=== PATIENT | female | born 1975 | race Hispanic/Latino ===

== ENCOUNTER 2016-06-27 06:24 | Emergency (ER) | payer MEDICAID ==
[~2016-06-27] VITALS: Ht 139.7 cm; Wt 61.3 kg
[2016-06-27 06:26] VITALS: BP 108/69; PULSE 88; RESP 14; O2SAT 98
--- NOTE | 2016-06-27 06:42 | ED.REPORT ---
HPI-Abd Pain F Under 40 Date of Service Jun 27, 2016 ED Provider: The patient is a 40 year old female who presents to the emergency department complaining of RUQ abdominal pain that began 2 weeks ago. The pain does not radiate anywhere else. She has also experienced nausea and a headache. She was seen at [facility] 2 weeks ago for the same. She was prescribed medication at that time but it was not helpful. She denies fever, chills, vomiting or diarrhea. She does not have history of previous abdominal surgeries. She does not believe she is . Nursing Notes Stated Complaint: ABDOMINAL PAIN Chief Complaint: Female Abdominal Pain Nursing Notes Reviewed: Yes Allergies: Coded Allergies: No Known Allergies (Verified Allergy, Unknown, 06/27/16) General Time Seen by MD: 06:42 Chief Complaint Abdominal pain Hx Obtained From: Patient, Other family..., Quality Tester Arrived By: Walk-in Sudden in Onset?: No Onset Occurred: More than a week ago... (2 weeks) Symptom Duration: Since onset Progression since Onset: Constant Location: : RUQ Quality: Painful Severity: Current: Moderate Severity: Maximum: Moderate Recent Healthcare: No recent hospitalization, Recent doctor visit Similar Sx Previous: Yes Past Medical History Past Surgical History No previous abdominal surgeries Family History Noncontributory Social History Other Social History: Good social support, Local resident Ambulatory Status Independent Review of Systems Constitutional: Denies: Chills, Fever GI: Reports: Abdominal pain, Nausea, Denies: Diarrhea, Vomiting Female: Denies: Complete sys rev & neg: except as marked. Neurologic: Reports: Headache Physical Exam Initial Vital Signs Vital Signs (First) Date Time Temp Pulse Resp B/P Pulse Ox O2 Delivery O2 Flow Rate FiO2 06/27/16 06:26 36.5 88 14 108/69 98 Initial VS: Reviewed Head / Eyes: Atraumatic, Normocephalic, PERRL ENT: Mucous membranes moist, Conjunctiva normal, No scleral icterus Neck: Supple, Non-tender, Full range of motion Extremities: Vascular intact, Neuro intact, No swelling, No tenderness Skin: Warm, Dry, No cyanosis Psychiatric: Mood/affect normal, Behavior normal, Normal thought content General/Constitutional: Awake, Alert, No acute distress, Cooperative Respiratory / Chest: Atraumatic, Breath sounds NL, Breath sounds = bilat, No respiratory distress, No rales, No rhonchi, No wheezing Cardiovascular: Heart rate NL, Regular rhythm, Heart sounds NL, No gallop, No murmurs, No rubs, Peripheral circulation NL Heart Rate / Rhythm: Negative: Tachycardia Heart Sounds / Murmur: Negative: Murmur present... Abdomen: Soft, No guarding, No rebound, BS normoactive, No distention, No hernia, No palpable mass, No pulsatile mass Tenderness/Guarding/Rebound: Positive: Tender RUQ..., Tender epigastric, Negative: Tender RLQ... Organomegaly / Mass / Hernia: Negative: Hepatomegaly, Splenomegaly Back: No midline vertebral tend, No CVA tenderness Neurologic: Oriented X3, Speech NL, Gait NL Lower Extremity / Pelvis / MS: Neurologic intact, Vascular intact, No edema Interpretation & Diagnostics Interpretation & Diagnostics: Abdominal US: Gallstones, no obvious signs of inflammation. Labs drawn on 06/04/2016: BUN 20, creatinine 0.79, WBC 10.9, HGB 16.0, HCT 41.8, platelets 283 Lab Results Interpretation Result Diagram: 06/27/16 0715 06/27/16 0715 Test 06/27/16 07:15 06/27/16 07:30 White Blood Count 7.6th/mm3 (3.8-10.1) Red Blood Count 4.70mil/mm3 (3.90-5.20) Hemoglobin 14.9g/dL (12.0-15.6) Hematocrit 42.6% (35.0-46.0) Mean Corpuscular Volume 90.6fL (81-100) Mean Corpuscular Hemoglobin 31.7pg (27.0-35.0) Mean Corpuscular Hemoglobin Concent 35.0% (32.0-37.0) Red Cell Distribution Width 13.0% (12.3-15.4) Platelet Count 232bil/L (150-400) Neutrophils (%) (Auto) 51.8% (40-74) Lymphocytes (%) (Auto) 39.2% (14-46) Monocytes (%) (Auto) 6.2% (4-12) Eosinophils (%) (Auto) 2.1% (0-5) Basophils (%) (Auto) 0.4% (0-3) Sodium Level 139mEq/L (134-144) Potassium Level 3.9mEq/L (3.5-5.2) Chloride Level 106mEq/L (97-108) Carbon Dioxide Level 20mmol/L (18-29) Blood Urea Nitrogen 12mg/dL (6-20) Creatinine 0.56mg/dL (0.57-1.00) Estimat Glomerular Filtration Rate 174mL/min (>59) Glucose Level 114mg/dL (60-99) Calcium Level 8.4mg/dL (8.5-10.1) Total Bilirubin 0.3mg/dL (0.0-1.2) Aspartate Amino Transf (AST/SGOT) 24U/L (0-50) Alanine Aminotransferase (ALT/SGPT) 27U/L (0-32) Alkaline Phosphatase 93U/L (25-150) Total Protein 6.8g/dL (6.4-8.4) Albumin 4.0g/dL (3.4-5.0) Lipase 33U/L (13-60) Hold Ariza Top Tube Received (Received) Re-Eval/Medical Decision Source of Hx: Old records, Family Re-Evaluation/Progress : Time of Eval: 08:39 Re-Evaluation/Progress Note: Rechecked the patient. Discussed plan for discharge with outpatient followup. All questions were addressed. Consultation : Referral / Consult Name: Cori Gonzalez MD Consulted With: Surgeon Call Returned at: 08:33 Note: Dr. Gonzalez will arrange for his clinic to contact the patient today to make an appointment to see her tomorrow. Counseled Regarding: Diagnosis, Lab results, Need for follow-up, When/why to return to ED Discharge & Departure Primary Impression: RUQ abdominal pain Additional Impression: Cholelithiasis Cholelithiasis location: gallbladder Cholecystitis presence: without cholecystitis Biliary obstruction: without biliary obstruction Qualified Code : K80.20 - Calculus of gallbladder without cholecystitis without obstruction Disposition: Home Discharge Condition All VS Reviewed: Yes Condition: Stable Patient Instructions: Cholelithiasis (DC) Additional Instructions: You have stones in your gallbladder. It is very important that you followup with a surgeon. I spoke with Dr. Gonzalez and his office will contact you today to schedule an appointment for tomorrow. Use the medication as prescribed. Please return to the emergency department if you develop severe pain, vomiting, fever, yellowing of her eyes, or any other new or concerning symptoms. The new medication is oxycodone/APAP 5/325. Take 1 or 2 of these pills every 4 hours as needed for pain. Referrals: Erica Kelly MD (PCP) Cori Gonzalez MD Attestation Portions of this note were transcribed by Alison Freeman. I, Dr. Aleman personally performed the history, physical exam and medical decision-making; I reviewed and confirmed the accuracy of the information in the transcribed note. Signed by: Rose Torres, 06/27/2016 at 0855. copies to: Cori Gonzalez MD; Erica Kelly MD, Kirk H MD Jun 27, 2016 06:42 Alison Freeman Jun 27, 2016 06:49
[2016-06-27 06:44] VITALS: BP 108/69; PULSE 88; RESP 14; O2SAT 98
[2016-06-27] MEDS ORDERED: Ondansetron 8 mg ODT Tablet PO ONE (06:55)
[2016-06-27] MEDS ORDERED: oxyCODONE-Acetamin 5-325 mg Tablet PO ONE (06:55)
[2016-06-27 07:27] LABS: BASOPHILS % (AUTO) 0.4 % (0-3); EOSINOPHILS % (AUTO) 2.1 % (0-5); MONOCYTES % (AUTO) 6.2 % (4-12); Mean Corpuscular Hemoglobin 31.7 pg (27.0-35.0); Mean Corpuscular Volume 90.6 fL (81-100); NEUTROPHILS % (AUTO) 51.8 % (40-74); Platelet Count 232 bil/L (150-400)
[2016-06-27] MEDS ORDERED: OXYC1TAB24 PO (08:58)
[2016-06-27 09:14] VITALS: BP 103/51; PULSE 51; RESP 12; O2SAT 99
--- NOTE | 2016-06-27 10:16 | DRSVH ---
PROCEDURE: US ABDOMEN INDICATIONS: RUQ pain TECHNIQUE: Real-time scanning was performed of the abdominal and retroperitoneal organs, with image documentatio n. COMPARISON: [facility], US, ABDOMEN SONOGRAM, 11/02/2012, 6:37. FINDINGS: Liver length: 14.06 cm Gallbladder Wall Thickness: 3.20 mm CHD: - CBD: - Spleen length: 8.34 cm Right kidney length: 9.80 cm Left kidney length: 9.73 cm Aorta(Proximal): 1.39 cm Aorta(Mid): 1.15 cm Aorta(Distal): 1.15 cm RCIA: 9.60 mm LCIA: 9.40 mm Liver: Liver is normal in size and demonstrates diffusely increased echotexture. Gallbladder: There are multiple shadowing stones within the gallbladder lumen. The gallbladder wall t hickness measures 3.2 mm. No pericholecystic fluid or sonographic Doshi's sign. Biliary ducts: Intrahepatic bile ducts are non-dilated. Extrahepatic bile duct caliber is normal. Normal is 6-7 mm or less in diameter, or 10 mm or less post-cholecystectomy. Pancreas: Visualized portions of the pancreas are sonographically normal. Spleen: Spleen is normal in size and homogeneous in echotexture. Kidneys: Kidneys are normal in size and echotexture. No hydronephrosis or nephrolithiasis. No fransico d masses. Aorta: Visualized aorta is normal in caliber at less than 3 cm. Iliacs: Proximal common iliac arteries are normal in caliber at less than 2.5 cm. IVC: Intrahepatic inferior vena cava is patent. Miscellaneous: No free abdominal fluid. IMPRESSION: 1. Cholelithiasis. There is equivocal gallbladder with thickening. No pericholecystic fluid collectio n or sonographic Doshi sign. Recommend clinical correlation for early acute cholecystitis. 2. No intrahepatic or extrahepatic biliary dilation. 3. Diffusely increased hepatic echotexture. This finding is most likely secondary to hepatic fatty i nfiltration although other hepatocellular disease may have a similar appearance. Recommend clinical c orrelation. Dictated by: Haylee Silvestre M.D. on 06/27/2016 at 10:02 Approved by: Haylee Silvestre M.D. on 06/27/2016 at 10:14
== END 2016-06-27 09:33 | disposition home or self-care (01) ==
LOC: SED 06:24
DX: R10.11 Right upper quadrant pain (principal); K80.20 Calculus of gallbladder without cholecystitis without obstruction

== ENCOUNTER 2016-06-28 20:24 | Observation (INO) | payer MEDICAID ==
[~2016-06-28] VITALS: Ht 147.3 cm; Wt 62.4 kg
[~2016-06-28 20:24] MED LIST: OXYC1TAB24 PO
[2016-06-28 20:30] VITALS: BP 80/47; PULSE 60; RESP 16; O2SAT 99
--- NOTE | 2016-06-28 21:11 | ED.REPORT ---
HPI-Abd Pain F Under 40 Date of Service Jun 28, 2016 ED Provider: Jamar Marie MD Patient is a 40 year old female with known gallstones who presents to the ED complaining of worsening RUQ abdominal pain that began 2 weeks ago. Patient is unable to sit up due to her severe pain. She reports associated nausea but denies vomiting. She has not had a fever or chills. Patient was seen in the ED yesterday, at which time she was found to have gallstones on ultrasound. She has an appointment on July 09 for a cholecystectomy. 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 Nursing Notes Stated Complaint: POSSIBLE KIDNEY STONE Chief Complaint: Female Abdominal Pain Nursing Notes Reviewed: Yes Allergies: Coded Allergies: No Known Allergies (Verified Allergy, Unknown, 06/28/16) Scheduled PRN oxyCODONE-Acetaminophen 5-325 mg (oxyCODONE-Acetaminophen 5-325 mg) 1 Each Tablet 1-2 TAB PO Q6H PRN PRN For Pain General Time Seen by MD: 21:10 Chief Complaint Abdominal pain Hx Obtained From: Patient Arrived By: Walk-in Sudden in Onset?: No Onset Occurred: More than a week ago... (2 weeks) Symptom Duration: Since onset Progression since Onset: Gradually worsening Location: : RUQ Quality: Painful Severity: Current: Severe Severity: Maximum: Severe Recent Healthcare: Recent doctor visit Similar Sx Previous: Yes Past Medical History Past Medical History gallstones Past Surgical History No previous abdominal surgeries Family History Noncontributory Smoking History Unknown if Ever Smoker Social History Other Social History: Good social support, Local resident Ambulatory Status Independent Review of Systems Constitutional: Denies: Chills, Fever GI: Reports: Abdominal pain, Nausea, Denies: Vomiting Complete sys rev & neg: except as marked. Physical Exam Initial Vital Signs Vital Signs (First) Date Time Temp Pulse Resp B/P Pulse Ox O2 Delivery O2 Flow Rate FiO2 06/28/16 20:30 36.0 60 16 80/47 99 Room Air Initial VS: Reviewed, Vital signs abnormal Head / Eyes: Atraumatic, Normocephalic, PERRL ENT: Conjunctiva normal, No scleral icterus Neck: Supple, Full range of motion Skin: Warm, Dry, No cyanosis Neurologic: Alert, Oriented, Nonfocal Psychiatric: Mood/affect normal, Behavior normal, Normal thought content General/Constitutional: Awake, Alert Appearance / Presentation: Positive: In pain, Uncomfortable face is flushed Respiratory / Chest: Breath sounds NL, Breath sounds = bilat, No respiratory distress Cardiovascular: Heart rate NL, Regular rhythm, Heart sounds NL Abdomen: Soft Tenderness/Guarding/Rebound: Positive: Tender RUQ... (very tender) Back: Painless range of motion Interpretation & Diagnostics US GALLBLADDER IMPRESSION: Cholelithiasis with no gallbladder wall thickening or sonographic Doshi sign. No biliary duct dilatation. Radiologist: Angel Jacome MD 06/28/2016 - 10:33:26 PM PDT Lab Results Interpretation Result Diagram: 06/28/163 06/28/163 Test 06/28/16 21:13 06/28/16 23:46 White Blood Count 14.8th/mm3 (3.8-10.1) Red Blood Count 4.71mil/mm3 (3.90-5.20) Hemoglobin 14.9g/dL (12.0-15.6) Hematocrit 42.9% (35.0-46.0) Mean Corpuscular Volume 91.1fL (81-100) Mean Corpuscular Hemoglobin 31.6pg (27.0-35.0) Mean Corpuscular Hemoglobin Concent 34.7% (32.0-37.0) Red Cell Distribution Width 12.9% (12.3-15.4) Platelet Count 249bil/L (150-400) Neutrophils (%) (Auto) 68.7% (40-74) Lymphocytes (%) (Auto) 24.5% (14-46) Monocytes (%) (Auto) 4.9% (4-12) Eosinophils (%) (Auto) 1.6% (0-5) Basophils (%) (Auto) 0.1% (0-3) Sodium Level 138mEq/L (134-144) Potassium Level 3.5mEq/L (3.5-5.2) Chloride Level 103mEq/L (97-108) Carbon Dioxide Level 20mmol/L (18-29) Blood Urea Nitrogen 11mg/dL (6-20) Creatinine 0.62mg/dL (0.57-1.00) Estimat Glomerular Filtration Rate 154mL/min (>59) Glucose Level 118mg/dL (60-99) Lactic Acid Level 1.4mmol/L (0.4-2.0) Calcium Level 8.6mg/dL (8.5-10.1) Magnesium Level 2.1mg/dL (1.6-2.6) Total Bilirubin 0.4mg/dL (0.0-1.2) Aspartate Amino Transf (AST/SGOT) 60U/L (0-50) Alanine Aminotransferase (ALT/SGPT) 48U/L (0-32) Alkaline Phosphatase 105U/L (25-150) Total Protein 6.9g/dL (6.4-8.4) Albumin 4.3g/dL (3.4-5.0) Lipase 25U/L (13-60) Urine Color Straw (YELLOW) Urine Appearance Clear (CLEAR,HAZY) Urine pH 6.5 (5.0-8.0) Urine Specific Martin 1.010 (1.003-1.035) Urine Protein Negativemg/dL (NEG,TRACE) Urine Glucose (UA) Negativemg/dL (NEGATIVE) Urine Ketones Negativemg/dL (NEGATIVE) Urine Occult Blood Small (NEGATIVE) Urine Nitrite Negative (NEGATIVE) Urine Bilirubin Negative (NEGATIVE) Urine Urobilinogen Normalmg/dL (NORMAL) Urine Leukocyte Esterase Negative (NEGATIVE) Urine RBC 0-2/hpf (0-2) Urine WBC 0-5/hpf (0-5) Urine Epithelial Cells Moderate/hpf (NONE-MOD) Urine Crystals None seen (NONE SEEN) Urine Bacteria Few/hpf (NONE-FEW) Urine Hyaline Casts None/lpf (NONE) Urine Granular Casts None seen (NONE SEEN) Urine Waxy Casts None seen (NONE SEEN) Urine Red Blood Cell Casts None seen (NONE SEEN) Urine White Blood Cell Casts None seen (NONE SEEN) Urine Mucus None seen (None Seen) Urine Trichomonas None seen (NONE SEEN) Urine Yeast None (NONE SEEN) Urinalysis Comment None Urine Culture Reflexed Not indicated ECG Interpretation ECG Interpretation: Sinus rhythm, Rate 69 Time: 21:27 Interpreted by: ED physician Normal ECG Interpretation: No acute ischemic changes Re-Eval/Medical Decision Med Decision/Clinical Course 40-year-old female with known gallstones who was seen in the emergency room yesterday. She returns now with increasing pain and is noted to have doubling of her white count. She also has minor transaminase elevations. Her ultrasound confirms both mobile and impacted gallstones. There is no overt evidence of cholecystitis or ductal obstruction. Her case was discussed with Dr. Weber and she will be admitted for cholecystectomy. Source of Hx: Old records Re-Evaluation/Progress #1: Time of Eval: 23:24 Patient Status: Condition improved Re-Evaluation/Progress Note: Rechecked the patient. Her pain is mildly improved with medication. Discussed the results of her ultrasound, with no acute findings. The patient and her family would like for the patient's surgery to be preformed sooner, as her pain is very severe when it is present. Will consult the surgeon. Re-Evaluation/Progress #2: Time of Eval: 23:50 Re-Evaluation/Progress Note: Informed the patient that she will be admitted to the hospital for surgery. Patient understands and agrees with this plan. All questions were addressed. Consultation : Referral / Consult Name: Cam Weber MD Consulted With: Surgeon Call Returned at: 23:35 Pelletizer: Will see patient, Agrees with eval, Agrees with plan, Accepts admit Note: Spoke with Dr. Weber, surgeon, who agrees to accept admit and will take the patient to surgery. Counseled Regarding: Diagnosis, Lab results, Need for follow-up, When/why to return to ED Discharge & Departure Primary Impression: Cholelithiasis Cholelithiasis location: gallbladder Cholecystitis presence: without cholecystitis Biliary obstruction: without biliary obstruction Qualified Code : K80.20 - Calculus of gallbladder without cholecystitis without obstruction Additional Impressions: Biliary colic Leukocytosis Leukocytosis type: unspecified Qualified Code: D72.829 - Elevated white blood cell count, unspecified Disposition: Home Discharge Condition All VS Reviewed: Yes Condition: Stable Referrals: Erica Kelly MD (PCP) Jeffreyibjosé antonio Attestation Portions of this note were transcribed by Frances Alegria. I, Dr. Marie personally performed the history, physical exam and medical decision-making; I reviewed and confirmed the accuracy of the information in the transcribed note. Signed by: Rose Pearce, 06/28/2016 1917 copies to: Erica Kelly MD, Howard L MD Jun 28, 2016 21:11 Frances Alegria Jun 28, 2016 21:16
[2016-06-28] MEDS ORDERED: 0.9% Sodium Chloride 1,000 ML IV ONE (21:14)
[2016-06-28 21:20] LABS: BASOPHILS % (AUTO) 0.1 % (0-3); EOSINOPHILS % (AUTO) 1.6 % (0-5); MONOCYTES % (AUTO) 4.9 % (4-12); Mean Corpuscular Hemoglobin 31.6 pg (27.0-35.0); Mean Corpuscular Volume 91.1 fL (81-100); NEUTROPHILS % (AUTO) 68.7 % (40-74); Platelet Count 249 bil/L (150-400)
[2016-06-28] MEDS: HYDROmorphone 0.5 mg/0.5 mL iSecure Syringe IVPUSH PRN ×2 (21:31→22:38)
[2016-06-28] MEDS: Ondansetron 2 mg/mL 2 mL Inj IVPUSH PRN ×2 (21:31→22:38)
[2016-06-28 21:50] LABS: Magnesium 2.1 mg/dL (1.6-2.6)
[2016-06-28 22:39] VITALS: BP 100/60; PULSE 75; RESP 16; O2SAT 100
[2016-06-28 23:55] LABS: APPEARANCE,URINE CLEAR (CLEAR,HAZY); COLOR,URINE STRAW (YELLOW); PH,URINE 6.5 (5.0-8.0)
[2016-06-28 23:56] LABS: OCCULT BLOOD,URINE SMALL (NEGATIVE); UROBILINOGEN,URINE NORMAL (NORMAL)
[2016-06-29] VITALS (14 sets, daily range): BP systolic 95–123; BP diastolic 47–76; PULSE 56–74; RESP 14–24; O2SAT 95–100
[2016-06-29] MEDS: Dextrose 5% 0.45% NaCl 1,000 ML IV SCH ×2 (01:19→10:47)
--- NOTE | 2016-06-29 01:25 | NUR ---
Arrival to 1001 Arrived from ED at 0030; able to transfer self to BR and to bed, accepts assistance related to pain. Son at bedside to assist with admission, pt does not speak Bengali, speaks [place] only. Family are well informed about expectations of surgery in am for gallstones. Pt is NPO, IV fluids infusing. Pain reported at 3/10 currently, increases intermittently. Oriented to hospital routines, call light, hourly rounding ongoing.
--- NOTE | 2016-06-29 08:34 | DRSVH ---
PROCEDURE: US ABDOMEN, LIMITED ([id number]) INDICATIONS: known gallstone, severe pain TECHNIQUE: Real-time focused scanning was performed of the abdomen, with image documentation. COMPARISON: [facility], US, US ABDOMEN, 06/27/2016, 7:00. FINDINGS: Multiple gallstones are present, several which likely impacted within the gallbladder neck or cystic duct. No gallbladder wall thickening, pericholecystic fluid or sonographic Doshi sign. N o biliary dilatation. IMPRESSION: Cholelithiasis with several stones impacted within the gallbladder neck or cystic duct. No evidence of cholecystitis at this time. Note: These findings are concordant with the preliminary interpretation. Dictated by: Balbir LAWRENCE Interpreted: Romina Shrestha MD on 06/29/2016 at 8:32 Transcribed by: BARBI on 06/29/2016 at 8:33 Approved by: Romina Shrestha MD, PhD on 06/29/2016 at 17:02
--- NOTE | 2016-06-29 08:40 | HP ---
[address] [address] HISTORY AND PHYSICAL PATIENT: NIYA GILBERT : 1975 MR#: [id number] ADMIT: 06/28/2016 JOB ID: [id number] CHIEF COMPLAINT: Abdominal pain. 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 She presented to the emergency department originally on June 27 with abdominal pain for two weeks. At that time she had a normal white blood cell count, normal liver function tests, and an ultrasound that showed multiple gallstones, a gallbladder wall thickness of 3.2 mm, no pericholecystic fluid, no sonographic Doshi sign. She was discharged with followup in surgery clinic. She then returned to the emergency department last night with worsening abdominal pain and nausea. She has not had any vomiting. She denies fevers or chills. A repeat ultrasound was done and again showed gallstones, but no gallbladder wall thickening or pericholecystic fluid, there was no bile duct dilation. PAST MEDICAL HISTORY: None. PAST SURGICAL HISTORY: None. MEDICATIONS: None. ALLERGIES: No known drug allergies. FAMILY HISTORY: Unknown. SOCIAL HISTORY: She is a nonsmoker. Denies alcohol and illicit drug use. REVIEW OF SYSTEMS: A 10-point review of systems is otherwise negative except as described in history of present illness. PHYSICAL EXAMINATION: Body mass index 28.8, temperature 36.7, pulse 68, blood pressure 95/59, saturation 99% on room air. In general, she is resting in bed in no acute distress. HEENT: Sclerae are anicteric. Mucous membranes are moist. Neck: No lymphadenopathy. Chest: Clear to auscultation bilaterally. Heart: Regular rate and rhythm. No murmurs. Abdomen is soft, nondistended. She is focally tender in the right upper quadrant with guarding. There are no palpable masses. Extremities: No edema. Neuro: No deficits. LABORATORIES: White count is 14.8, hematocrit 42.9, platelets 249, glucose 118. Bilirubin 0.4, AST 60, ALT 48, alkaline phosphatase 105. Lipase 25. ASSESSMENT AND PLAN: A 40-year-old woman with acute cholecystitis with gallstones. I have recommended that we proceed with laparoscopic cholecystectomy with intraoperative cholangiogram today. Technical aspects of surgery were discussed. Risks of surgery were discussed, including, but not limited to, bleeding, infection, injury to the bile ducts, conversion to open surgery. All her questions were answered. She will be kept n.p.o. for surgery today, which will likely be this afternoon. She will then most likely stay the night in the hospital tonight and be discharged from the hospital tomorrow.
[2016-06-29] MEDS ORDERED: Glycopyrrolate 0.2 MG/ML 1mL Inj ONE (09:00)
[2016-06-29] MEDS ORDERED: Propofol 10,000 mCg/mL 20 mL Inj ONE (09:00)
[2016-06-29] MEDS ORDERED: Neostigmine 1 mg/mL 10 mL Inj ONE (09:00)
[2016-06-29] MEDS ORDERED: fentaNYL-PF 50 mCg/mL 2 mL Inj ONE (09:00)
[2016-06-29] MEDS: Piperacillin-Tazo 3.375 Gm Inj 3.375 GM in Dextrose 5% Minibag Plus 50 ML IV SCH ×2 (10:25→19:18)
--- NOTE | 2016-06-29 12:57 | NUR ---
Social Work- Brief Note Data: Pt in OR when SW attempted to speak with pt. EMR reviewed. Pt is a [place] speaking 40 year old male admitted 06/28/16 for cholelithiasis per H&P. Pt has no insurance. Pt's listed PCP is Erica Kelly MD. Pt resides in [place] with [place]. Pt has no DPOA on file. Pt anticipated to discharge home with no needs, to transport, SW will continue to follow. Assessment: Pt who is independent at base. Plan: SW to follow up with pt regarding insurance, PCP, DPOA, and discharge needs. Anticipated discharge home with to transport via POV. SW will continue to follow. ZENY Perkins
--- NOTE | 2016-06-29 13:31 | PCM.HPANE ---
Patient Data Surgeon Admitting Provider:Cam Weber MD Attending Provider:Cam Weber MD Primary Care Physician:Erica Kelly MD Other Provider:Georgette Wright Anesthesia Reason for Visit Cholelithiasis Ht/WT & BMI Height (Feet): 4 Height (Inches): 10.00 Weight (Kilograms): 62.400 Body Mass Index 28.88 Allergies Coded Allergies: No Known Allergies (Verified Allergy, Unknown, 06/28/16) Diabetes History Hx Diabetes?: No MRSA MRSA: No Medications Hypertension Medication: No Home Meds Incl Beta Dave: No Active Scripts oxyCODONE-Acetaminophen 5-325 mg 1 Each Tablet1-2 Tab PO Q6H PRN For Pain #15 TABLET Prov:Donald Aleman MD 06/27/16 History History of ENT Problems?: No HEENT History: Denies:: Dysphagia Hx of Heart Problems?: No Cardiovascular History: Denies:: Congestive Heart Failure Hypertension Hx of Respiratory Problem?: No Respiratory History: Denies:: Dyspnea Tuberculosis Hx Neurologic Problems?: Yes Neurological History: Positive for:: Dizziness Headaches Denies:: Seizures Hx of GI Problems?: Yes Other GI Pertinent History: gall stones Hx of Problems?: No Female Hx: Denies:: Currently Hx Musculoskeletal Problems?: No Musculoskeletal History: Denies:: Back Injury Hx of Psycho/Social Problems?: No Hx Surgeries?: No Hx Any Other Health Problems?: No Other History: Denies:: Cancer History Blood Transfusions: Positive for:: Accept Blood Products? Denies:: Blood Transfusions Hx Diabetes: No Hx Alcohol Use: NoHx Substance Use: No Smoking Status: Unknown if Ever Smoker Have You Smoked inLast 12 mo: No Stop/Bang Treated for Sleep Apnea?: No Do You Have a CPAP Machine?: No S-Snoring: Do You Snore Loudly: No T-Tired: feel tired, fatigued: No O-Obsered: Observed not breath: No P-Blood Pressure: treated: No B- Body Mass Index > 35 kg/m2: No A- Age over 50: No N- Neck Large Circumference: No G- Gender Male: No RAMÍREZ Total Score: 0 RAMÍREZ Risk Assessment: Low Risk, <3 Yes Risk Assessment Category Category 1A: Patient has history of documented sleep apnea, and HAS NOT received any narcotic, sedative or anesthesia administration during this stay. Category 1B: Patient has history of documented sleep apnea, and HAS received any narcotic , sedative or anesthesia administration during this stay Category 2: Patient has SUSPECTED Obstructive Sleep Apnea, and HAS received any narcotic , sedative or anesthesia administration during this stay. Category 3: Patient has SUSPECTED Obstructive Sleep Apnea and HAS NOT received narcotic, sedative or anesthesia administration during this stay. Category 4: Outpatient in Procedural Areas with known sleep apnea or who screen positive for High Risk via the STOP/BANG questionnaire. Exam Exam Vital Signs Vital Signs Date Time Temp Pulse Resp B/P Pulse Ox O2 Delivery O2 Flow Rate FiO2 06/29/16 09:32 36.7 56 16 96/57 98 Room Air General Appearance: Alert, Oriented X3, Cooperative, No Acute Distress HEENT/AIRWAY: MP 2 Lungs: Normal Air Movement Heart: Exam Unremarkable Meds/Labs/Diagnostics Admission Meds Current Medications Sodium Chloride 1,000 ml @ 0 mls/hr Q0M ONCE IV Last administered on 21:31; Start 06/28/16 at 21:14; Stop 06/28/16 at 21:16; Status DC Dextrose/Sodium Chloride 1,000 ml @ 100 mls/hr Q10H IV Last administered on 01:19; Start 06/29/16 at 00:47 Piperacillin Sod/ Tazobactam Sod/ Dextrose/Water (Zosyn 3.375 Gm Inj/D5W Minibag Plus) 50 ml @ 12.5 mls/hr Q8 IV Last administered on 06/29/16 10:25; Start 06/29/16 at 08:30 Labs Test 06/28/16 21:13 06/28/16 23:46 White Blood Count 14.8th/mm3 (3.8-10.1) Red Blood Count 4.71mil/mm3 (3.90-5.20) Hemoglobin 14.9g/dL (12.0-15.6) Hematocrit 42.9% (35.0-46.0) Mean Corpuscular Volume 91.1fL (81-100) Mean Corpuscular Hemoglobin 31.6pg (27.0-35.0) Mean Corpuscular Hemoglobin Concent 34.7% (32.0-37.0) Red Cell Distribution Width 12.9% (12.3-15.4) Platelet Count 249bil/L (150-400) Neutrophils (%) (Auto) 68.7% (40-74) Lymphocytes (%) (Auto) 24.5% (14-46) Monocytes (%) (Auto) 4.9% (4-12) Eosinophils (%) (Auto) 1.6% (0-5) Basophils (%) (Auto) 0.1% (0-3) Sodium Level 138mEq/L (134-144) Potassium Level 3.5mEq/L (3.5-5.2) Chloride Level 103mEq/L (97-108) Carbon Dioxide Level 20mmol/L (18-29) Blood Urea Nitrogen 11mg/dL (6-20) Creatinine 0.62mg/dL (0.57-1.00) Estimat Glomerular Filtration Rate 154mL/min (>59) Glucose Level 118mg/dL (60-99) Lactic Acid Level 1.4mmol/L (0.4-2.0) Calcium Level 8.6mg/dL (8.5-10.1) Magnesium Level 2.1mg/dL (1.6-2.6) Total Bilirubin 0.4mg/dL (0.0-1.2) Aspartate Amino Transf (AST/SGOT) 60U/L (0-50) Alanine Aminotransferase (ALT/SGPT) 48U/L (0-32) Alkaline Phosphatase 105U/L (25-150) Total Protein 6.9g/dL (6.4-8.4) Albumin 4.3g/dL (3.4-5.0) Lipase 25U/L (13-60) Urine Color Straw (YELLOW) Urine Appearance Clear (CLEAR,HAZY) Urine pH 6.5 (5.0-8.0) Urine Specific [place] 1.010 (1.003-1.035) Urine Protein Negativemg/dL (NEG,TRACE) Urine Glucose (UA) Negativemg/dL (NEGATIVE) Urine Ketones Negativemg/dL (NEGATIVE) Urine Occult Blood Small (NEGATIVE) Urine Nitrite Negative (NEGATIVE) Urine Bilirubin Negative (NEGATIVE) Urine Urobilinogen Normalmg/dL (NORMAL) Urine Leukocyte Esterase Negative (NEGATIVE) Urine RBC 0-2/hpf (0-2) Urine WBC 0-5/hpf (0-5) Urine Epithelial Cells Moderate/hpf (NONE-MOD) Urine Crystals None seen (NONE SEEN) Urine Bacteria Few/hpf (NONE-FEW) Urine Hyaline Casts None/lpf (NONE) Urine Granular Casts None seen (NONE SEEN) Urine Waxy Casts None seen (NONE SEEN) Urine Red Blood Cell Casts None seen (NONE SEEN) Urine White Blood Cell Casts None seen (NONE SEEN) Urine Mucus None seen (None Seen) Urine Trichomonas None seen (NONE SEEN) Urine Yeast None (NONE SEEN) Urinalysis Comment None Urine Culture Reflexed Not indicated Plan Impression Patient chart reviewed, patient interviewed and anesthestic plan with risks, benefits, and alternatives discussed, and informed consent obtained. ASA Physical Status: ASA1 Normal Healthy Anesthetic Plan: GA Bene/Risks/Altern/Consents: Yes HP Complete Prior to Induction: Yes Other limited exam, history, and consent obtained with the assistance of on-line silver cleaner. I completed the pre-op assessment for Dr Maynard who was in another case while the [employer] silver cleaner was available. Adis Oconnor MD Jun 29, 2016 13:31
--- NOTE | 2016-06-29 13:31 | PCM.HPANE ---
Patient Data Surgeon Admitting Provider:Cam Weber MD Attending Provider:Cam Weber MD Primary Care Physician:Erica Kelly MD Other Provider:La Wrightingham Anesthesia Reason for Visit Cholelithiasis Ht/WT & BMI Height (Feet): 4 Height (Inches): 10.00 Weight (Kilograms): 62.400 Body Mass Index 28.88 Allergies Coded Allergies: No Known Allergies (Verified Allergy, Unknown, 06/28/16) Diabetes History Hx Diabetes?: No MRSA MRSA: No Medications Active Scripts oxyCODONE-Acetaminophen 5-325 mg 1 Each Tablet1-2 Tab PO Q6H PRN For Pain #15 TABLET Prov:Donald Aleman MD 06/27/16 History History of ENT Problems?: No HEENT History: Denies:: Dysphagia Hx of Heart Problems?: No Cardiovascular History: Denies:: Congestive Heart Failure Hypertension Hx of Respiratory Problem?: No Respiratory History: Denies:: Dyspnea Tuberculosis Hx Neurologic Problems?: Yes Neurological History: Positive for:: Dizziness Headaches Denies:: Seizures Hx of GI Problems?: Yes Other GI Pertinent History: gall stones Hx of Problems?: No Female Hx: Denies:: Currently Hx Musculoskeletal Problems?: No Musculoskeletal History: Denies:: Back Injury Hx of Psycho/Social Problems?: No Hx Surgeries?: No Hx Any Other Health Problems?: No Other History: Denies:: Cancer History Blood Transfusions: Positive for:: Accept Blood Products? Denies:: Blood Transfusions Hx Diabetes: No Hx Alcohol Use: NoHx Substance Use: No Smoking Status: Unknown if Ever Smoker Have You Smoked inLast 12 mo: No Stop/Bang Treated for Sleep Apnea?: No Do You Have a CPAP Machine?: No S-Snoring: Do You Snore Loudly: No T-Tired: feel tired, fatigued: No O-Obsered: Observed not breath: No P-Blood Pressure: treated: No B- Body Mass Index > 35 kg/m2: No A- Age over 50: No N- Neck Large Circumference: No G- Gender Male: No RAMÍREZ Total Score: 0 Risk Assessment Category Category 1A: Patient has history of documented sleep apnea, and HAS NOT received any narcotic, sedative or anesthesia administration during this stay. Category 1B: Patient has history of documented sleep apnea, and HAS received any narcotic , sedative or anesthesia administration during this stay Category 2: Patient has SUSPECTED Obstructive Sleep Apnea, and HAS received any narcotic , sedative or anesthesia administration during this stay. Category 3: Patient has SUSPECTED Obstructive Sleep Apnea and HAS NOT received narcotic, sedative or anesthesia administration during this stay. Category 4: Outpatient in Procedural Areas with known sleep apnea or who screen positive for High Risk via the STOP/BANG questionnaire. Exam Exam Vital Signs Vital Signs Date Time Temp Pulse Resp B/P Pulse Ox O2 Delivery O2 Flow Rate FiO2 06/29/16 09:32 36.7 56 16 96/57 98 Room Air General Appearance: Alert, Oriented X3, Cooperative HEENT/AIRWAY: MP 2, Neck Movement (from), Mouth Opening (wnl) Lungs: Clear to Auscultation Heart: Exam Unremarkable Meds/Labs/Diagnostics Admission Meds Current Medications Sodium Chloride 1,000 ml @ 0 mls/hr Q0M ONCE IV Last administered on 21:31; Start 06/28/16 at 21:14; Stop 06/28/16 at 21:16; Status DC Dextrose/Sodium Chloride 1,000 ml @ 100 mls/hr Q10H IV Last administered on 01:19; Start 06/29/16 at 00:47 Piperacillin Sod/ Tazobactam Sod/ Dextrose/Water (Zosyn 3.375 Gm Inj/D5W Minibag Plus) 50 ml @ 12.5 mls/hr Q8 IV Last administered on 06/29/16 10:25; Start 06/29/16 at 08:30 Labs Test 06/28/16 21:13 06/28/16 23:46 White Blood Count 14.8th/mm3 (3.8-10.1) Red Blood Count 4.71mil/mm3 (3.90-5.20) Hemoglobin 14.9g/dL (12.0-15.6) Hematocrit 42.9% (35.0-46.0) Mean Corpuscular Volume 91.1fL (81-100) Mean Corpuscular Hemoglobin 31.6pg (27.0-35.0) Mean Corpuscular Hemoglobin Concent 34.7% (32.0-37.0) Red Cell Distribution Width 12.9% (12.3-15.4) Platelet Count 249bil/L (150-400) Neutrophils (%) (Auto) 68.7% (40-74) Lymphocytes (%) (Auto) 24.5% (14-46) Monocytes (%) (Auto) 4.9% (4-12) Eosinophils (%) (Auto) 1.6% (0-5) Basophils (%) (Auto) 0.1% (0-3) Sodium Level 138mEq/L (134-144) Potassium Level 3.5mEq/L (3.5-5.2) Chloride Level 103mEq/L (97-108) Carbon Dioxide Level 20mmol/L (18-29) Blood Urea Nitrogen 11mg/dL (6-20) Creatinine 0.62mg/dL (0.57-1.00) Estimat Glomerular Filtration Rate 154mL/min (>59) Glucose Level 118mg/dL (60-99) Lactic Acid Level 1.4mmol/L (0.4-2.0) Calcium Level 8.6mg/dL (8.5-10.1) Magnesium Level 2.1mg/dL (1.6-2.6) Total Bilirubin 0.4mg/dL (0.0-1.2) Aspartate Amino Transf (AST/SGOT) 60U/L (0-50) Alanine Aminotransferase (ALT/SGPT) 48U/L (0-32) Alkaline Phosphatase 105U/L (25-150) Total Protein 6.9g/dL (6.4-8.4) Albumin 4.3g/dL (3.4-5.0) Lipase 25U/L (13-60) Urine Color Straw (YELLOW) Urine Appearance Clear (CLEAR,HAZY) Urine pH 6.5 (5.0-8.0) Urine Specific [place] 1.010 (1.003-1.035) Urine Protein Negativemg/dL (NEG,TRACE) Urine Glucose (UA) Negativemg/dL (NEGATIVE) Urine Ketones Negativemg/dL (NEGATIVE) Urine Occult Blood Small (NEGATIVE) Urine Nitrite Negative (NEGATIVE) Urine Bilirubin Negative (NEGATIVE) Urine Urobilinogen Normalmg/dL (NORMAL) Urine Leukocyte Esterase Negative (NEGATIVE) Urine RBC 0-2/hpf (0-2) Urine WBC 0-5/hpf (0-5) Urine Epithelial Cells Moderate/hpf (NONE-MOD) Urine Crystals None seen (NONE SEEN) Urine Bacteria Few/hpf (NONE-FEW) Urine Hyaline Casts None/lpf (NONE) Urine Granular Casts None seen (NONE SEEN) Urine Waxy Casts None seen (NONE SEEN) Urine Red Blood Cell Casts None seen (NONE SEEN) Urine White Blood Cell Casts None seen (NONE SEEN) Urine Mucus None seen (None Seen) Urine Trichomonas None seen (NONE SEEN) Urine Yeast None (NONE SEEN) Urinalysis Comment None Urine Culture Reflexed Not indicated Plan Impression Patient chart reviewed, patient interviewed and anesthestic plan with risks, benefits, and alternatives discussed, and informed consent obtained. ASA Physical Status: ASA2 Mod Systemic Disease Anesthetic Plan: GA Bene/Risks/Altern/Consents: Yes HP Complete Prior to Induction: Yes Reuben Maynard MD Jun 29, 2016 13:30
[2016-06-29] MEDS ORDERED: Lactated Ringer's 1,000 ML IV ONE (13:36)
--- NOTE | 2016-06-29 14:10 | NUR ---
OR Pt left floor to OR at 1313, IV SL, pt walked from rmcgraw to bed, report given to Keya KINCAID in the OR, Yves administer prior to surgery.
[2016-06-29] MEDS ORDERED: Lactated Ringer's 500 ML IV PRN (14:37)
[2016-06-29] MEDS ORDERED: Lactated Ringer's 1,000 ML IV SCH (14:37)
[2016-06-29] MEDS ORDERED: Dexamethasone 4 mg/mL Inj IVPUSH PRN (14:40)
[2016-06-29] MEDS ORDERED: EPHEDrine Sulfate 50 mg/mL Inj IVPUSH PRN (14:40)
[2016-06-29] MEDS ORDERED: Labetalol 5 mg/mL 4 mL Inj IV PRN (14:40)
[2016-06-29] MEDS ORDERED: Ondansetron 2 mg/mL 2 mL Inj IVPUSH PRN (14:40)
[2016-06-29] MEDS ORDERED: HYDROmorphone 1 mg/mL Inj IVPUSH PRN (14:40)
[2016-06-29] MEDS ORDERED: Atropine 0.4 mg/mL Inj IVPUSH PRN (14:40)
[2016-06-29] MEDS ORDERED: hydrALAZINE 20 mg/mL Inj IVPUSH PRN (14:40)
[2016-06-29] MEDS ORDERED: Phenylephrine 10,000 mCg/mL Inj IVPUSH PRN (14:40)
[2016-06-29] MEDS ORDERED: fentaNYL-PF 50 mCg/mL 2 mL Inj IVPUSH PRN (14:40)
[2016-06-29] MEDS ORDERED: Bupivacaine-MPF 0.5% W/EPI 30 mL Inj INFILTRATE ONE (14:44)
--- NOTE | 2016-06-29 15:38 | DRSVH ---
PROCEDURE: X-RAY OPERATIVE CHOLANGIOGRAM ([id number]) INDICATIONS: CHOLELITHIASIS COMPARISON: [facility], , [employer], 06/28/2016, 20:40. FINDINGS: Biliary ducts: The surgeon injected contrast into the biliary ducts after cannulation of the cystic duct stump. Visualized intra- and extrahepatic bile ducts are normal in caliber, without strictures. Multiple small intraluminal filling defects seen within the distal common bile duct. No evidence f or iatrogenic ductal injury. Duodenum: Contrast flows promptly through the sphincter of Oddi into the duodenum, which appears nor mal in caliber. IMPRESSION: Several common bile duct intraluminal filling defects suspicious for retained stones. Dictated by: Balbir LAWRENCE Interpreted: Haylee Silvestre MD on 06/29/2016 at 15:37 Transcribed by: JESSIE on 06/29/2016 at 15:38 Approved by: Haylee Silvestre M.D. on 06/30/2016 at 11:02
--- NOTE | 2016-06-29 15:49 | PCM.SURGOP ---
Surgical Operative Report Date of Service: Jun 29, 2016 Pre Operative Diagnosis Acute cholecystitis Post Operative Diagnosis Same, choledocholithiasis Procedure: Laparoscopic cholecystectomy with intraoperative cholangiogram, trans-cystic common bile duct exploration Surgeon and Senior Maintenance Technician: Surgeon: Koffi Packer MD Assistants: Carson Riley PA-C Indication for Procedure 40-year-old [place] woman who was admitted to the hospital with worsening right upper quadrant pain, elevated white blood cell count, elevated liver function tests, although normal bilirubin. An ultrasound showed multiple gallstones, but no gallbladder wall thickening, no dilation of the common bile duct. After discussion risks and benefits, she agreed to proceed with laparoscopic cholecystectomy. Findings: There was acute cholecystitis. Cholangiogram showed normal ductal anatomy, but there were 5-6 small stones in the distal common bile duct. There was flow around the stones into the duodenum. A wire was passed into the duodenum, and glucagon was given, but the duct could not be cleared. Procedure Details After smooth induction of general endotracheal anesthesia, the patient was placed in the supine position with the right arm tucked. A procedural pause was performed according to the SCOAP checklist, and all were found to be in agreement. A curvilinear infraumbilical incision was made. Dissection was carried down full electrocautery until the midline fascia was incised vertically, and the peritoneal cavity entered without difficulty. Pneumoperitoneum was established. Inspection revealed some inflammatory adhesions to the fundus of the gallbladder. 3 additional ports were placed under direct visualization. One was placed in the midline epigastrium, and 2 in the right subcostal region. Adhesions were taken down from the gallbladder fundus with electrocautery. The fundus of the gallbladder was then grasped and retracted cephalad. The infundibulum of the gallbladder was grasped. The peritoneum was incised. The cystic artery was doubly clipped and divided. The critical view was obtained using the infundibular technique. A clip was placed on the gallbladder side of the cystic duct and a cystic ductotomy was made. A cholangiogram was obtained using the 5 Mongolian cholangiocatheter. This demonstrated a normal cystic duct, normal ductal anatomy, but multiple distal common bile duct stones. There was flow around the stones into the duodenum. Attempts were made to flush the stones with saline into the duodenum. IV glucagon was given. A 0.025 inch Glidewire was passed through the cholangiocatheter, down the common bile duct and into the duodenum, but the stones could not be dislodged. Because there were numerous stones, I elected not to attempt retrieval with basket. The cholangiocatheter was removed. 2 clips were placed on the common bile duct side of the cystic duct ductotomy, and the duct was divided with scissors. A 2- 0 PDS Endoloop was then placed around the clips over the cystic duct stump for added ductal closure security. The remainder of the gallbladder was dissected out of the gallbladder fossa with electrocautery. The gallbladder was placed into an Endo Catch bag and removed from the umbilical port site. It was passed off the field and sent for permanent pathology. The gallbladder fossa was inspected and irrigated. Hemostasis was adequate, and there was no bile leak. The ports were removed under direct visualization and pneumoperitoneum was released. The fascia of the umbilical port site was closed using an 0 Vicryl suture in a [id number]. The skin incisions were closed using running 4-0 Monocryl subcuticular stitches. Steri-Strips and sterile dressings were applied. At the end of the case all needle and sponge counts were correct 2. The patient was awakened from anesthesia without difficulty, and taken to the recovery room in satisfactory condition, having tolerated the procedure well. Complications There were no periprocedural complications identified. Surgical Specimen Removed: Yes Specimen sent to Pathology: Yes Surgical Specimen description: Gallbladder Anesthetic Plan: GA Grafts, Implants: None Output, Estimated Blood Loss: 30 Blood Administration during pisano: No Drains: None Catheters: None Koffi Packer MD Jun 29, 2016 15:49
--- NOTE | 2016-06-29 16:20 | PCM.ANEP1 ---
Post Anesthesia Phase 1 PACU Phase 1 Assessment Date of Service: Jun 29, 2016 Vital Signs Vital Signs Date Time Temp Pulse Resp B/P Pulse Ox O2 Delivery O2 Flow Rate FiO2 06/29/16 16:12 73 18 123/69 98 Simple Mask 10 06/29/16 16:00 67 19 112/68 100 Simple Mask 10 06/29/16 15:55 71 19 112/58 100 Simple Mask 10 06/29/16 15:48 37.2 74 19 115/59 100 Room Air 10 06/29/16 09:32 36.7 56 16 96/57 98 Room Air Anesthetic Administered: GA Level of Alertness: Awake, talking BARAHONA's with Equal Strength: Yes Pain: Yes Nausea or Vomiting: No Airway Device: Oralpharangeal Airway Oxygen Delivery: Room Air Lungs: Normal Air Movement Reuben Maynard MD Jun 29, 2016 16:20
[2016-06-29] MEDS: HYDROmorphone 0.5 mg/0.5 mL iSecure Syringe IVPUSH PRN (17:15)
[2016-06-29] MEDS: Ondansetron 2 mg/mL 2 mL Inj IVPUSH PRN (17:15)
--- NOTE | 2016-06-29 17:47 | PCM.ANEP2 ---
Post Anesthesia Evaluation ASA/CMS Post Anesthesia VS in Patient's Normal Range?: Yes Resp Stable; Airway Patent?: Yes CV Function & Hydration Stable: Yes Mental Status Recovered?: Yes Pain control Satisfactory?: Yes N/V Control Satisfactory?: Yes Reuben Maynard MD Jun 29, 2016 17:47
[2016-06-29] MEDS ORDERED: HYDROmorphone PCA 0.2 mg/mL 30 mL Inj IV PRN (18:05)
[2016-06-29] MEDS ORDERED: MetoCLOpramide 5 mg/mL 2 mL Inj IVPUSH PRN (18:05)
--- NOTE | 2016-06-29 19:24 | NUR ---
Post op Pt arrived back on [facility] at 1700, was able to scoot from gurney to bed with minimal assistance, pt complaining of severe pain and nausea, administered 0.5mg IV dilaudid and 4mg IV Zofran, with minimal relief. notified Dr aPcker, new order received for EXHIBITIONS AND COLLECTIONS MANAGER Dilaudid, set up EXHIBITIONS AND COLLECTIONS MANAGER taught pt how to use with the assistance of family to translate. pt able to sleep. see post op assessment, care continued.
--- NOTE | 2016-06-29 20:22 | NUR ---
pain patient speaks mextico. no attendance officer available son translated. rates pain "medium". no signs of distress. demonstrated use of kapok and cotton machine operator. patient pushed button. will cont to evaluate.
--- NOTE | 2016-06-29 21:22 | NUR ---
nausea patient complaining of nausea. medicated with reglan 10mg ivp as documented. effective. patient resting now, eyes closed. no signs of distress. care ongoing
--- NOTE | 2016-06-29 21:33 | NUR ---
refused scds patient refused scds. asked to wave ankles. agreed.
--- NOTE | 2016-06-30 00:07 | NUR ---
transfer per Dr Packer orders: patient to transfer to [facility]. accepting MD Dr RONY Vivas. notified nursing dry paste supervisor. all paperwork completed. bed available. transport arranged via [facility] (iv fluids). explained to family and patient (ONLY available translation for [facility] is patient's son.) signed consent for transfer.
[2016-06-30 00:11] VITALS: BP 113/71; PULSE 73; RESP 20; O2SAT 96
[2016-06-30] MEDS: HYDROmorphone 0.5 mg/0.5 mL iSecure Syringe IVPUSH PRN (00:49)
--- NOTE | 2016-06-30 00:49 | NUR ---
turned off implementation analyst machine for transfer implementation analyst turned off for transfer. patient medicated with dilaudid 0.5mg iv push as documented for pain. rates pain to abd. 4. no signs of distress. pain occurs with activity (ambulates to bathroom) will cont to evaluate.
[2016-06-30 00:51] VITALS: RESP 16; O2SAT 97
[2016-06-30] MEDS: Dextrose 5% 0.45% NaCl 1,000 ML IV SCH (01:03)
[2016-06-30] MEDS: Ondansetron 2 mg/mL 2 mL Inj IVPUSH PRN (01:03)
--- NOTE | 2016-06-30 01:22 | NUR ---
tranfer / transport verbal report to [facility] team. telephone report to accepting blaine Wilcox at [facility]. patient to room 314 at [facility]. notified [facility] team. family at bedside. given all parking and hospital directions. all belongings sent with family. Addendum: 06/30/16 at 0124 by JAX SHOEMAKER RN all paperwork sent with patient. given to [facility] team.
--- NOTE | 2016-07-03 11:14 | PATH ---
SURGICAL PATHOLOGY Attending Physician:Russell Goyal CASE STATUS: Signed Out PATIENT NAME: NIYA GILBERT PID: [id number] : 1975 DATE COLLECTED:06/29/2016 00:00 SPECIMEN: Gallbladder CLINICAL HISTORY: 1). GALLBLADDER FINAL DIAGNOSIS: 1.GALLBLADDER: CHOLELITHIASIS. NO EVIDENCE OF MALIGNANCY. ICD10 CODE K80.7 GROSS DESCRIPTION: Received in formalin, labeled with the patient' s name and "gallbladder", is one gallbladder measuring 7.5 x 2.5 x 2.5 cm. The serosal surface is smooth and glistening. Shelly are located at the cystic duct region. Puncturing of the gallbladder releases thick, dark green, mucoid bile. Further sectioning reveals the wall to measure 0.1 cm in thickness. Within the cavity are found multiple multifaceted, yellow-green stones ranging in size from 0.4 x 0.4 x 0.4 cm to 0.8 x 0.8 x 0.8 cm. The stones are easily crushed to reveal a yellow, crystalline array. The mucosal surface is green and velvety. Conveyor Worker sections are submitted in cassette 1A. ([id number]) MICRO DESCRIPTION: See diagnosis. ICD-9 CODES: CPT CODES: 1: 25801 Electronically Signed Out Lisset Wayne MD [facility] [address], [place] [address] Technical component performed at [facility], [facility] [address], [place], [address]
--- NOTE | 2016-07-11 08:34 | DIS ---
[address] [address] DISCHARGE SUMMARY PATIENT: NIYA GILBERT : 1975 MR#: [id number] ADMIT: 06/28/2016 JOB ID: [id number] DIS: 06/30/2016 ADMISSION DIAGNOSIS: Acute cholecystitis. DISCHARGE DIAGNOSIS: Acute cholecystitis, choledocholithiasis. REASON FOR ADMISSION: The patient is a 40-year-old woman who had been seen both in the emergency department and in the General Surgery Clinic one day prior to admission with right upper quadrant abdominal pain. Initially, her laboratory evaluation showed normal white blood cell count and normal liver function tests. She then came back to the emergency department with worsening abdominal pain the next night. This time, she had a white blood cell count of 14.8, mildly elevated transaminases at 60 and 48 with a normal bilirubin and normal alkaline phosphatase. She had an abdominal ultrasound which showed multiple gallstones, likely impacted in the neck of the gallbladder, but no gallbladder wall thickening, no pericholecystic fluid. There was no description of the common bile duct. Perhaps it was not seen or just not described in the veterinary bacteriologist. Nonetheless, she was admitted to the hospital with a diagnosis of acute cholecystitis. HOSPITAL COURSE: She was admitted to the General Surgical service overnight with antibiotics and pain medicines. The following morning, she was evaluated and surgery was scheduled. On June 29 a laparoscopic cholecystectomy with intraoperative cholangiogram was performed. There was acute cholecystitis. The cholangiogram showed multiple filling defects in the distal common bile duct. The duct was flushed, glucagon was given, and a wire was passed through the cystic duct down into the duodenum, but the stones were not able to be dislodged or retrieved. The operation was concluded. She was in stable condition. Gastroenterology was not available for ERCP over the weekend, so plans were made to transfer her to a tertiary care facility. After calling multiple facilities, [facility] in [place] accepted her for transfer to the hospitalist service, with plans to have her undergo ERCP with stone extraction. The facility accepted on the evening of June 29, but she actually departed [facility] shortly after midnight in stable condition. DISCHARGE MEDICATIONS: Hydromorphone, metoclopramide, Zosyn, ondansetron. FOLLOW UP PLANS: She will follow up in the General Surgery Clinic for a wound check approximately two weeks after discharge from [facility]. She should call if she experiences fevers over 101.5, jaundice, vomiting, worsening abdominal pain, drainage from her incisions.
== END 2016-06-30 01:15 | disposition short-term general hospital (02) ==
LOC: SED 20:41 → OSC 23:53
PROVIDERS: ADMIT Surgery; ATTEND Student in an Organized Health Care Education/Training Program
PROC: BF101ZZ Fluoroscopy of Bile Ducts using Low Osmolar Contrast (ICD-10-PCS; 2016-06-29)
PROC: 0FT44ZZ Resection of Gallbladder, Percutaneous Endoscopic Approach (ICD-10-PCS; principal; 2016-06-29 13:30)
DX: K80.62 Calculus of gallbladder and bile duct with acute cholecystitis without obstruction (principal)
CPT/HCPCS: 36415; 47563; 74300; 76705; 80053; 81000; 81025; 83605; 83690; 83735; 85025; 87040; 93005; 96361; 96374; 96375; 96376; 99285; G0378; J0690; J1100; J1170; J2250; J2405; J2543; J2710; J2765; J3010; J7030; J7042; J7120; Q9967

== ENCOUNTER 2016-10-11 12:45 | Day surgery (SDC) | payer MEDICAID ==
[~2016-10-11 12:45] MED LIST changes: +Lactated Ringer's 1,000 ML IV ONE
--- NOTE | 2016-10-12 11:47 | DRSVH ---
PROCEDURE: US ABDOMEN, LIMITED ([id number]) INDICATIONS: EVALUATE FOR CBD STENT TECHNIQUE: Real-time focused scanning was performed of the abdomen, with image documentation. COMPARISON: [facility], CR, XR CHOLANGIOGRAM OPERATIVE, 06/29/2016, 15:06. FINDINGS: Exam is limited by overlying bowel gas. In these limits visualized portions of the extra h epatic bile duct appear normal in caliber and no definite inability prosthesis is visualized. IMPRESSION: Limited evaluation of the extrahepatic bile demonstrates normal size and no definite bili radames stent. Dictated by: Balbir Barbosa [facility] Interpreted: Marisela Morales MD on 10/11/2016 at 16:21 Approved by: Marisela Morales M.D. on 10/12/2016 at 11:46
== END 2016-10-11 23:59 | disposition home or self-care (01) ==
LOC: END 12:45
PROVIDERS: ATTEND Internal Medicine Gastroenterology
DX: Z09 Encounter for follow-up examination after completed treatment for conditions other than malignant neoplasm (principal); Z87.898 Personal history of other specified conditions; Z90.49 Acquired absence of other specified parts of digestive tract